=== PATIENT | female | born 1940 | race Caucasian/White ===

== ENCOUNTER 2018-12-25 11:07 | Emergency (ER) | payer MEDICARE, BC ==
--- NOTE | 2018-12-25 11:40 | EDM.PDOC ---
ED HPI GENERAL MEDICAL PROBLEM - General Chief Complaint: Lower Extremity Injury/Pain Stated Complaint: FELL GETTING OUT OF A CHAIR Time Seen by Provider: 12/25/18 11:25 Source of Information: Reports: Patient, RN Notes Reviewed History Limitations: Reports: No Limitations - History of Present Illness INITIAL COMMENTS - FREE TEXT/NARRATIVE: Patient is an 78-year-old female to the ED for the evaluation of a left foot injury. The patient states that this injury happened last night. She states that while she was sitting in the chair, her leg fell asleep and when she got up she fell because her leg was asleep. She states that she twisted her left foot underneath and landed on it. She states that she now has some pain to the lateral mid left foot. She states that bearing weight does make this pain worse. She denies any numbness or tingling into the left foot. She would rate her pain at most once present a 4 out of 10. She is not a diabetic at all, and she did take some Aleve at roughly 6 AM this morning. She denies any pain into her left ankle, left knee, or left hip. There is no obvious bruising, however there is some slight swelling on her left foot. Treatments BALANCER: Reports: NSAIDS Right Foot Pain Score (Numeric/FACES): 4 - Related Data Allergies Allergy/AdvReac Type Severity Reaction Status Date / Time alendronate sodium Allergy Cannot Verified 04/17/14 13:42 [From Fosamax] Remember amoxicillin [Amoxicillin] Allergy Cannot Verified 04/17/14 13:42 Remember Penicillins Allergy Cannot Verified 04/17/14 13:42 Remember Home Meds: Home Meds Hydrochlorothiazide [Microzide] 12/25/18 [History] Irbesartan 12/25/18 [History] Levothyroxine [Synthroid] 12/25/18 [History] Potassium Chloride 12/25/18 [History] Simvastatin [Zocor] 12/25/18 [History] Ursodiol 12/25/18 [History] amLODIPine [Norvasc] 12/25/18 [History] Past Medical History Cardiovascular History: Reports: Hypertension Social & Family History - Tobacco Use Smoking Status *Q: Never Smoker Review of Systems - Review of Systems Review Of Systems: See Below Constitutional: Reports: No Symptoms Eyes: Reports: No Symptoms Ears: Reports: No Symptoms Nose: Reports: No Symptoms Mouth/Throat: Reports: No Symptoms Respiratory: Reports: No Symptoms Cardiovascular: Reports: No Symptoms GI/Abdominal: Reports: No Symptoms Genitourinary: Reports: No Symptoms Musculoskeletal: Reports: Foot Pain (Left mid foot). Denies: Leg Pain, Joint Pain, Joint Swelling Skin: Reports: No Symptoms Neurological: Denies: Numbness, Pre-Existing Deficit, Tingling Psychiatric: Reports: No Symptoms ED EXAM, GENERAL - Physical Exam Exam: See Below Exam Limited By: No Limitations General Appearance: Alert, WD/WN, No Apparent Distress Respiratory/Chest: No Respiratory Distress, Lungs Clear, Normal Breath Sounds, No Accessory Muscle Use, Chest Non-Tender Cardiovascular: Normal Peripheral Pulses, Regular Rate, Rhythm, No Murmur Peripheral Pulses: 3+: Dorsalis Pedis (L), Dorsalis Pedis (R) Extremities: Normal Inspection, Normal Range of Motion, Normal Capillary Refill , Other (Slight swelling noted to dorsum of left midfoot) Neurological: Alert, Oriented, Normal Cognition, Normal Gait, No Motor/Sensory Deficits Psychiatric: Normal Affect, Normal Mood Skin Exam: Warm, Dry, Intact, Normal Color, No Rash Course - Vital Signs Last Recorded V/S: Last Vital Signs Temp 97.3 F 12/25/18 11:18 Pulse 98 12/25/18 11:18 Resp 18 12/25/18 11:18 BP 147/71 H 12/25/18 11:18 Pulse Ox 97 12/25/18 11:18 - Orders/Labs/Meds Orders: Active Orders 24 hr Category Date Time Status Foot Comp Min 3V Lt [CR] Stat Exams 12/25/18 11:22 Ordered - Re-Assessments/Exams Free Text/Narrative Re-Assessment/Exam: 12/25/18 12:00 Patient presents to the ED for the evaluation of a left injury. I did order a left foot x-rays for further evaluation. 12/25/18 12:06 The patient's x-rays were reviewed by myself and Dr. Barnett, there does not appear to be any obvious sign of fracture at this time, however there are arthritic changes. Official radiology read is pending. 12/25/18 12:32 Patient's x-ray is read by virtual radiology as no evidence of an acute fracture of the left midfoot. Patient will be discharged home with general instructions. Departure - Departure Time of Disposition: 12:19 Disposition: Home, Self-Care 01 Condition: Fair Clinical Impression: Left foot pain - Discharge Information *PRESCRIPTION DRUG MONITORING PROGRAM REVIEWED*: No *COPY OF PRESCRIPTION DRUG MONITORING REPORT IN PATIENT MAGGY: No Instructions: Musculoskeletal Pain Referrals: Emelyn Fernandez MD [Primary Care Provider] - Forms: ED Department Discharge Additional Instructions: You have been evaluated in the ED for your left foot injury. Your x-ray demonstrated no acute fracture of your left foot. Please use ice as tolerated to the affected area. You may take tylenol 500 mg or ibuprofen 600mg q6 hrs for pain relief. Please do so until you have a tolerable level of pain with activity. Do not exceed 4000mg tylenol, Do not exceed 3200mg ibuprofen in a 24 hour time period. Please return to ED if your symptoms should change or worsen. - My Orders Last 24 Hours: My Active Orders 12/25/18 11:22 Foot Comp Min 3V Lt [CR] Stat - Assessment/Plan Last 24 Hours: My Active Orders 12/25/18 11:22 Foot Comp Min 3V Lt [CR] Stat
--- NOTE | 2018-12-26 09:27 | CR ---
Left foot: 4 views left foot were obtained. Comparison: No prior foot exam. Plantar spur is seen. Spur also noted at the attachment of the Achilles tendon to the calcaneus. Fracture is identified within the base of the fifth metatarsal this is best noted on the lateral view. Joint space narrowing is noted within the first MTP joint. Slight joint space narrowing is scattered within the MTP joints and tarsal joints. Bony structures are osteoporotic. Incidental small os navicularis is seen. Impression: 1. Nondisplaced fracture involving the base of the fifth metatarsal. This is best seen on the lateral view. 2. Calcaneal spurs and mild degenerative change with osteopenia. Diagnostic code #3 Disagree with preliminary report from [facility] (fracture as noted above), finalized on 12/25/18, 1:26 PM Central Time, code #1
== END 2018-12-25 12:45 | disposition home or self-care (01) ==
LOC: JD.ED 11:07
DX: S92.355A Nondisplaced fracture of fifth metatarsal bone, left foot, initial encounter for closed fracture (principal); I10 Essential (primary) hypertension; Z88.0 Allergy status to penicillin; Z88.1 Allergy status to other antibiotic agents; Z88.8 Allergy status to other drugs, medicaments and biological substances; X50.1XXA Overexertion from prolonged static or awkward postures, initial encounter
CPT/HCPCS: 73630-26-LT; 73630-LT; 99282; 99283-25

== ENCOUNTER 2018-12-26 12:44 | Emergency (ER) | payer MEDICARE, BC ==
--- NOTE | 2018-12-26 13:12 | EDM.PDOC ---
ED HPI GENERAL MEDICAL PROBLEM - General Chief Complaint: General Stated Complaint: NEEDS A SPLINT Time Seen by Provider: 12/26/18 12:45 Source of Information: Reports: Patient, Old Records History Limitations: Reports: No Limitations - History of Present Illness INITIAL COMMENTS - FREE TEXT/NARRATIVE: Patient is a 78-year-old female who presented to the ED yesterday for evaluation of foot pain. She was called back to the ED today to have a splint applied to her left lower extremity. Our radiologist read her x-ray yesterday as a nondisplaced fifth metatarsal fracture, this was best seen on lateral view. Left Foot Pain Score (Numeric/FACES): 0 - Related Data Allergies Allergy/AdvReac Type Severity Reaction Status Date / Time alendronate sodium Allergy Cannot Verified 12/26/18 12:54 [From Fosamax] Remember amoxicillin [Amoxicillin] Allergy Cannot Verified 12/26/18 12:54 Remember Penicillins Allergy Cannot Verified 12/26/18 12:54 Remember Home Meds: Home Meds Hydrochlorothiazide [Microzide] 12/25/18 [History] Irbesartan 12/25/18 [History] Levothyroxine [Synthroid] 12/25/18 [History] Potassium Chloride 12/25/18 [History] Simvastatin [Zocor] 12/25/18 [History] Ursodiol 12/25/18 [History] amLODIPine [Norvasc] 12/25/18 [History] Past Medical History Cardiovascular History: Reports: Hypertension Social & Family History - Tobacco Use Smoking Status *Q: Never Smoker ED ROS GENERAL - Review of Systems Review Of Systems: ROS reveals no pertinent complaints other than HPI. ED EXAM, GENERAL - Physical Exam Exam: See Below Exam Limited By: No Limitations General Appearance: Alert, WD/WN, No Apparent Distress Respiratory/Chest: No Respiratory Distress, Lungs Clear, Normal Breath Sounds, No Accessory Muscle Use, Chest Non-Tender Cardiovascular: Normal Peripheral Pulses, Regular Rate, Rhythm, No Murmur Peripheral Pulses: 3+: Radial (L), Radial (R) Extremities: Normal Inspection, Normal Range of Motion, Non-Tender, No Pedal Edema, Normal Capillary Refill, Other (Slight swelling noted to left midfoot. This is increased from yesterday.) Neurological: Alert, Oriented, Normal Cognition, Normal Gait, Normal Reflexes, No Motor/Sensory Deficits Psychiatric: Normal Affect, Normal Mood Skin Exam: Warm, Dry, Intact, Normal Color, No Rash ED GENERAL MEDICAL PROCEDURES - Splinting Left Lower Extremity Splint Site: Left Lower extremity Pre-procedure NV status: Normal Post-procedure NV status: Normal Splint Material: Fiberglass Splint Design: Posterior Applied & Form Fitted By: Provider Provider Post-Splint Application NV Check: NV Status Normal, Good Position Complications: No Course - Vital Signs Last Recorded V/S: Last Vital Signs Temp 98.8 F 12/26/18 12:54 Pulse 92 12/26/18 12:54 Resp 17 12/26/18 12:54 BP 141/66 H 12/26/18 12:54 Pulse Ox 96 12/26/18 12:54 - Re-Assessments/Exams Free Text/Narrative Re-Assessment/Exam: 12/26/18 13:08 Patient presents to the ED for the application of a splint to her left lower extremity. A splint was applied with good neurovascular status after the splint was finished, the patient be educated on crutches and will be recommended to be nonweightbearing until she can be evaluated by orthopedics. Departure - Departure Time of Disposition: 13:09 Disposition: Home, Self-Care 01 Condition: Fair Clinical Impression: Metatarsal bone fracture Qualifiers: Encounter type: subsequent encounter Metatarsal bone: fifth Fracture type: closed Fracture alignment: nondisplaced Laterality: left Fracture healing: with routine healing Qualified Code(s): S92.355D - Nondisplaced fracture of fifth metatarsal bone, left foot, subsequent encounter for fracture with routine healing - Discharge Information *PRESCRIPTION DRUG MONITORING PROGRAM REVIEWED*: No *COPY OF PRESCRIPTION DRUG MONITORING REPORT IN PATIENT MAGGY: No Instructions: Metatarsal Fracture, Cast or Splint Care, Adult, [id number] Referrals: Emelyn Fernandez MD [Primary Care Provider] - Forms: ED Department Discharge Additional Instructions: You have been evaluated in the ED for your left foot pain. Your x-ray demonstrated a fracture of the 5th Metatarsal (foot bone) of your left foot. Please use ice as tolerated to the affected area. You may take Tylenol 500 mg or ibuprofen 600mg q6 hrs for pain relief. Please do so until you have a tolerable level of pain with activity. Do not exceed 4000mg tylenol, Do not exceed 3200mg ibuprofen in a 24 hour time period. Please call Ortho for follow-up and further evaluation Dr. Wood is our orthopedic surgeon, his office number is [phone]. Please call and set up an appointment as soon as possible for further management. Recommend that you use the crutches and stay nonweightbearing as much as possible until you can be evaluated by orthopedics. You have been given a handwritten prescription for a knee scooter/walker. This may be obtained at [facility], if the crutches are to cumbersome for you. [facility] will not be open until Wednesday12/27/18. Please return to ED if your symptoms should change or worsen.
== END 2018-12-26 13:25 | disposition home or self-care (01) ==
LOC: JD.ED 12:44
DX: S92.355D Nondisplaced fracture of fifth metatarsal bone, left foot, subsequent encounter for fracture with routine healing (principal); X50.1XXD Overexertion from prolonged static or awkward postures, subsequent encounter
CPT/HCPCS: 29515